=== PATIENT | female | born 1955 | race Caucasian/White ===

== ENCOUNTER → 2020-12-03 | Outpatient (CLI) | payer BC, SELFPAY | END | disposition home or self-care (01) | LOC: LABSPEC 11:55 | PROVIDERS: PCP Internal Medicine; Referring Provider Physician Assistant Surgical; Visit Provider Physician Assistant Surgical | DX: U07.1 COVID-19 (principal) | CPT/HCPCS: 87635; U0005; U0003 ==

== ENCOUNTER 2022-06-06 06:46 | Emergency (ER) | payer MEDICARE, OTHER, SELFPAY ==
[2022-06-06 06:47] VITALS: BP 170/97; PULSE 66; RESP 18; TEMP 36.3; O2SAT 97; BMI 29.5
--- NOTE | 2022-06-06 06:56 | CT_ITS ---
STUDY: CT ABDOMEN AND PELVIS WITHOUT CONTRAST REASON FOR EXAM: Female, 67 years old. Pain R flank RADIATION DOSAGE (If Supplied By Facility): CTDIvol = ( 13.08 ) mGy, DLP = ( 587.99 ) mGycm TECHNIQUE: Transaxial images were obtained from the dome of the diaphragm to the symphysis pubis without oral contrast, and without intravenous contrast. Sagittal and coronal images were reconstructed. Individualized dose optimization techniques were used for this CT. COMPARISON: None. FINDINGS: The visualized lung bases are unremarkable. The visualized portions of the heart are within normal limits. There is 1.2 cm cyst in the liver. Normal gallbladder and extrahepatic biliary system. Normal spleen. Normal pancreas. Normal bilateral adrenal glands. Normal right kidney. Normal left kidney. Normal visualized stomach. Normal small intestine. Normal colon. There is abundant stool. The appendix is visualized and appears normal. Normal abdominal aorta. Normal inferior vena cava. Normal retroperitoneum. Normal urinary bladder. There is atrophy of the uterus. There is no free fluid in the abdomen or pelvis. Normal abdominal wall. There is lumbar levoscoliosis with degenerative change of the spine. CT/Abdomen/Pelvis without Cont IMPRESSION: No dominant mass or obstruction. No stones or hydronephrosis. Abundant stool. Electronically Signed: Bhavin Grover MD at 8:56 EDT ,
--- NOTE | 2022-06-06 06:56 | ED.VIS.GI ---
HPI <Dr. Bhavin Vega MD - Last Filed: 06/06/22 07:01> HPI - GI History of Present Illness Chief Complaint: Flank Pain Informant: patient Abdominal Pain/Flank Pain Onset: Hours (1) Context: Sudden Onset Timing: Continuous Quality: Aching Location: Right Flank Current Severity: Mild Maximum Severity: Severe Worsened by: Nothing Relieved by: Nothing Nausea/Vomiting/Emesis GI Symptom: Positive for Nausea; Negative for Vomiting Diarrhea/Melena/Hematochezia GI Symptom: Negative for Diarrhea, Melena or Hematochezia Associated Symptoms Associated Symptoms: Negative for Dysuria, Frequency, Hematuria or Urgency Narrative Narrative: Patient had sudden onset of right flank pain and some nausea 6 AM, about 1 hour prior to evaluation here. Never had this before. No urinary symptoms, but the pain started suddenly while she was urinating. Last ate last night with dinner. Feeling fine prior to the onset of the pain. She points mostly to the right side and it comes around to the right upper quadrant, it goes a little to the low back but that is not where the primary pain is. She has no prior history of abdominal surgeries. [facility] <Dr. Bhavin Vega MD - Last Filed: 06/06/22 07:01> [facility] Medical History (Updated 06/06/22 @ 09:[address] Rommel Figueredo MD) Irregular heart beat Meningioma Home Medications lamotrigine 100 mg tablet 100 mg PO BID 06/06/22 [History Last Taken Unknown] metoprolol succinate 25 mg tablet,extended release 24 hr 25 mg PO DAILY 06/06/22 [History Last Taken Unknown] Allergy/AdvReac Type Severity Reaction Status Date / Time No Known Allergies Allergy Verified 06/06/22 06:51 Social History Smoking Status: Never smoker ROS <Dr. Bhavin Vega MD - Last Filed: 06/06/22 07:01> ROS ED Constitutional Constitutional ED: Denies chills or fever(s) Eyes Eyes: Denies change in vision or diplopia ENT ENT ED: Denies rhinorrhea or sore throat Cardiovascular Cardiovascular: Denies chest pain or palpitations Respiratory/Chest Respiratory/Chest: Denies cough or dyspnea Gastrointestinal Gastrointestinal: Reports abdominal pain and nausea; Denies diarrhea or vomiting Genitourinary Genitourinary ED: Reports flank pain; Denies dysuria, hematuria or urinary frequency Musculoskeletal Musculoskeletal: Reports back pain; Denies neck pain Integumentary Denies abscess or rash Neurologic Neurologic: Denies headache(s), paresthesias or weakness Psychiatric Psychiatric: Denies anxiety or suicidal thoughts EXAM <Dr. Bhavin Vega MD - Last Filed: 06/06/22 07:01> Physical Exam Const Vital Signs: 06/06/22 06:47 Temperature 97.4 F L Temperature Source Temporal Pulse Rate 66 Respiratory Rate 18 Blood Pressure 170/97 H Blood Pressure Mean 121 Pulse Ox 97 Oxygen Delivery Method Room Air Positive well nourished and well developed General Appearance ED: well developed and NAD HEENT Reports moist mucous membranes normocephalic and atraumatic Eyes PERRL and EOMs intact bilaterally Neck full ROM and supple Resp normal respiratory effort and clear to auscultation bilaterally Cardio regular rate, regular rhythm and no murmurs GI non-distended GI Narrative: Tender right upper quadrant, increases with deep breath but no guarding or rebound. No palpable pulsatile masses. No other areas of tenderness. Auscultation: normoactive bowel sounds Palpation: soft Back/Spine no CVA tenderness General Back: other FROM Extremity normal to inspection General Extremety ED: Negative for edema, pulses abnormal or tenderness General Extremity: Negative for edema or pulses abnormal Neuro oriented x3, CN's II-XII intact bilaterally and no sensory deficits noted Sensorium / Orientation: awake and alert Motor Exam: strength 5/5 throughout Psych mental status grossly normal and thought process normal Skin no rashes or lesions noted and no wounds <Dr. Rommel Figueredo MD - Last Filed: 06/06/22 09:30> Physical Exam Const Vital Signs: 06/06/22 06:47 Temperature 97.4 F L Temperature Source Temporal Pulse Rate 66 Respiratory Rate 18 Blood Pressure 170/97 H Blood Pressure Mean 121 Pulse Ox 97 Oxygen Delivery Method Room Air MDM <Dr. Bhavin Vega MD - Last Filed: 06/06/22 07:01> MDM MDM Narrative Medical decision making narrative: Given the history of this starting while she was urinating, my suspicion is that this is a kidney stone although her exam is less classic for that. Since ultrasound is not in-house yet, I am treating her symptoms, and running labs with a urine and a CT of the abdomen/pelvis without contrast. If she has ureterolithiasis, I believe that would explain her symptoms. However, given her age and the fact that she still has a gallbladder, biliary colic is also in the differential, which is why I am sending off blood work. Patient presents just prior to shift change, will check out to oncoming EM physician at shift change for reevaluation and interpretation of ancillary and final disposition. Lab Data Labs: Laboratory Results - last 24 hr 06/06/22 06/06/22 06/06/22 07:00 07:00 08:00 WBC 4.3 L RBC 5.00 Hgb 14.8 Hct 45.4 MCV 90.8 MCH 29.6 MCHC 32.6 RDW Std Deviation 44.0 H RDW Coeff of Hilda 13.2 Plt Count 213 MPV 9.8 Immature Gran % (Auto) 0.200 Neut % (Auto) 54.2 Lymph % (Auto) 29.8 [place] % (Auto) 10.2 H Eos % (Auto) 4.4 Baso % (Auto) 1.2 H Absolute Neuts (auto) 2.3 Absolute Lymphs (auto) 1.28 Nucleated RBC % 0 Sodium 141 Potassium 3.8 Chloride 109 H Carbon Dioxide 26.0 Anion Gap 6 BUN 19 H Creatinine 0.86 Estim Creat Clear Calc 57.12 Est GFR (MDRD) Af Amer 85 Est GFR (MDRD) Non-Af 70 BUN/Creatinine Ratio 22.1 H Glucose 113 H Calcium 9.3 Total Bilirubin 0.40 AST 19 ALT 29 Alkaline Phosphatase 98 Total Protein 7.0 Albumin 3.5 Globulin 3.5 Albumin/Globulin Ratio 1.0 Lipase 121 Urine Color Yellow Urine Clarity Clear Urine pH 7.0 Ur Specific [place] 1.015 Urine Protein 15 H Urine Glucose (UA) Normal Urine Ketones Negative Urine Occult Blood 10 H Urine Nitrite Negative Urine Bilirubin Negative Urine Urobilinogen Normal Ur Leukocyte Esterase 100 H Urine RBC 0 SEEN Urine WBC 5-10 SEEN Ur Squamous Epith Cells 0-5 SEEN Urine Bacteria 0 SEEN Urine Mucus 0 SEEN Radiography Diagnostic Testing: Clinical Impression(s) from Imaging Studies Abdomen/Pelvis CT 06/06/22 06:56 IMPRESSION: No dominant mass or obstruction. No stones or hydronephrosis. Abundant stool. Electronically Signed: Bhavin rGover MD at 8:56 EDT , <Dr. Rommel Figueredo MD - Last Filed: 06/06/22 09:30> [facility] Narrative Medical decision making narrative: Given the history of this starting while she was urinating, my suspicion is that this is a kidney stone although her exam is less classic for that. Since ultrasound is not in-house yet, I am treating her symptoms, and running labs with a urine and a CT of the abdomen/pelvis without contrast. If she has ureterolithiasis, I believe that would explain her symptoms. However, given her age and the fact that she still has a gallbladder, biliary colic is also in the differential, which is why I am sending off blood work. Patient presents just prior to shift change, will check out to oncoming EM physician at shift change for reevaluation and interpretation of ancillary and final disposition. I assumed this patient from the overnight physician. She had right flank pain and had CAT scan and labs and I am reviewing all the results and reexamine the patient she is doing well. Repeat exam at both 830 and 9:20 AM the patient is doing well. Abdomen is benign. There is no peritoneal signs. She has no significant right lower quadrant tenderness. I went over all the test results with her and her . She will be treated for flank pain of uncertain etiology. And constipation. Urine culture will be sent but not treated at this time unless the culture is positive. Lab Data Attestation: I reviewed the patient's lab results. Lab results narrative: CBC normal white count 4.3 H&H 14.8 and 45. Platelets 213. Electrolytes unremarkable gap of 6. Normal BUN 19 creatinine 0.8. Liver enzymes normal. He is normal 121. UA shows 5-10 white cells but no bacteria or nitrites. No epithelial cells. To be sent for culture but not treated. CAT scan of the abdomen pelvis showed constipation but otherwise was unremarkable. No stone. No appendicitis. The appendix was seen. No obstruction. Labs: Laboratory Results - last 24 hr 06/06/22 06/06/22 06/06/22 07:00 07:00 08:00 WBC 4.3 L RBC 5.00 Hgb 14.8 Hct 45.4 MCV 90.8 MCH 29.6 MCHC 32.6 RDW Std Deviation 44.0 H RDW Coeff of Hilda 13.2 Plt Count 213 MPV 9.8 Immature Gran % (Auto) 0.200 Neut % (Auto) 54.2 Lymph % (Auto) 29.8 [place] % (Auto) 10.2 H Eos % (Auto) 4.4 Baso % (Auto) 1.2 H Absolute Neuts (auto) 2.3 Absolute Lymphs (auto) 1.28 Nucleated RBC % 0 Sodium 141 Potassium 3.8 Chloride 109 H Carbon Dioxide 26.0 Anion Gap 6 BUN 19 H Creatinine 0.86 Estim Creat Clear Calc 57.12 Est GFR (MDRD) Af Amer 85 Est GFR (MDRD) Non-Af 70 BUN/Creatinine Ratio 22.1 H Glucose 113 H Calcium 9.3 Total Bilirubin 0.40 AST 19 ALT 29 Alkaline Phosphatase 98 Total Protein 7.0 Albumin 3.5 Globulin 3.5 Albumin/Globulin Ratio 1.0 Lipase 121 Urine Color Yellow Urine Clarity Clear Urine pH 7.0 Ur Specific [place] 1.015 Urine Protein 15 H Urine Glucose (UA) Normal Urine Ketones Negative Urine Occult Blood 10 H Urine Nitrite Negative Urine Bilirubin Negative Urine Urobilinogen Normal Ur Leukocyte Esterase 100 H Urine RBC 0 SEEN Urine WBC 5-10 SEEN Ur Squamous Epith Cells 0-5 SEEN Urine Bacteria 0 SEEN Urine Mucus 0 SEEN Radiography Diagnostic Testing: Clinical Impression(s) from Imaging Studies Abdomen/Pelvis CT 06/06/22 06:56 IMPRESSION: No dominant mass or obstruction. No stones or hydronephrosis. Abundant stool. Electronically Signed: Bhavin Grover MD at 8:56 EDT Reading Location ID and State: [facility] / [place] , Service support , Discharge Plan Triage Chief Complaint: Flank Pain ED Provider: Bhavin Vega Dx/Rx/DC Orders Clinical Impression: Acute flank pain Instructions: Abdominal Pain Prescriptions: No Action metoprolol succinate 25 mg tablet extended release 24 hr 25 mg PO DAILY lamotrigine 100 mg tablet 100 mg PO BID Primary Care Provider: Vidal Grimm Referrals: Vidal Grimm MD [Primary Care Provider] - 3-5 Days if not improving Shani Hull DO [Med Staff - Finish Off Operator] - 3-5 Days if not improving Activity Restrictions/Additional Instructions: Your labs look good. Your urine had some white cells in it but no blood or bacteria. A culture will be sent. If a urinary tract infection shows up on the urine culture we will notify you and treat you with antibiotics. The CAT scan showed increased stool but no kidney stone nor did you have an appendicitis. Tylenol and Motrin for pain. Plenty of fluids and fiber. Follow-up with your doctor if not improving or return if worse. Disposition Disposition: Home, Self Care
[2022-06-06 07:12] LABS: Absolute Lymphocyte Count 1.28 X10^3/uL (0.83-4.51); Absolute Neutrophil Count 2.3 X10^3/uL (2.0-7.7); Basophil# 0.05 X10^3/uL; Basophil% 1.2 % (0-1); Eosinophil# 0.19 X10^3/uL; Eosinophils% 4.4 % (0-5); Hematocrit 45.4 % (37-47); Hemoglobin 14.8 g/dL (12.0-15.0); Lymphocyte # 1.28 X10^3/ul (0.83-4.51); Lymphocyte % 29.8 % (19-41); Mean Corp Hgb Conc 32.6 g/dL (32-36); Mean Corpuscular Hgb 29.6 pg (27.0-32.0); Mean Corpuscular Volume 90.8 fL (81-99); Mean Platelet Vol. 9.8 fl (6.2-12.0); Monocyte# 0.44 X10^3/uL; Monocyte% 10.2 % (0-10); NRBC Flagged by Analyzer 0 % (0-5); Neutrophil # 2.33 X10^3/uL (2.7-7.7); Neutrophil % 54.2 % (47-70); Platelet Count 213 K/mm3 (150-450); RBC Distribution Width CV 13.2 % (11.6-14.6); White Blood Count 4.3 K/mm3 (4.4-11.0)
[2022-06-06 07:22] LABS: AST(SGOT) 19 U/L (15-37); Alanine Aminotransfer ALT/SGPT 29 U/L (13-56); Albumin, Serum 3.5 g/dL (3.2-5.0); Alkaline Phosphatase 98 U/L (45-117); Anion Gap 6 (5-15); BUN 19 mg/dL (7-18); BUN/Creat Ratio 22.1 RATIO (10-20); Calcium,Total 9.3 mg/dL (8.5-10.1); Chloride 109 mmol/L (98-107); Creatinine, Serum 0.86 mg/dL (0.55-1.02); EST Glomerular Filtration Rate 70 mL/min (>60); Est Glom Filt Rate - Afr Amer 85 mL/min (>60); Estimated Creatinine Clearance 57.12 ml/min; Globulin 3.5 g/dL (2.2-4.2); Glucose 113 mg/dL (74-106); Lipase 121 U/L (73-393); Potassium 3.8 mmol/L (3.5-5.1); Sodium Level 141 mmol/L (136-145)
[2022-06-06 08:09] LABS: Bacteria 0 SEEN /hpf (None Seen); Mucous, Urine 0 SEEN /hpf (<or=2+); Red Blood Cells-Urine 0 SEEN /hpf (0-5)
[2022-06-06 08:13] LABS: Color, Urine Yellow (Yellow); Glucose, Dipstick Normal (Normal); Ketone-Dipstick Negative (Negative); Leukocyte Esterase-Dipstick 100 /ul (Negative); Nitrite-Dipstick Negative (Negative); Occult Blood-Urine 10 /ul (Negative); Protein-Dipstick 15 mg/dl (Negative); Specific Gravity, Urine 1.015 (1.002-1.030); Urine Bilirubin Dipstick Negative (Negative); Urine Clarity Clear (Clear); Urine Urobilinogen Normal (Normal)
[2022-06-06 08:28] LABS: Squamous Epithelial Cells - UA 0-5 SEEN /hpf (5-10); White Blood Cells 5-10 SEEN /hpf (0-5)
== END 2022-06-06 09:45 | disposition home or self-care (01) ==
PROVIDERS: Emergency Provider Emergency Medicine; PCP Family Medicine; Visit Provider Emergency Medicine
DX: R10.9 Unspecified abdominal pain (principal)
CPT/HCPCS: 74176; 80053; 81001; 83690; 85025; 87086; 87088; 99283; A4216